=== PATIENT | female | born 1990 | race Caucasian/White ===

== ENCOUNTER → 2016-10-20 | Outpatient (CLI) | payer BC ==
[~2016-10-20] MED LIST: Iopamidol 612 MG/ML 30 ML SDV IUTERINE STA
--- NOTE | 2016-10-20 09:33 | US ---
EXAMINATION: Hysterosalpingogram. HISTORY: Infertility. PROCEDURE/FINDINGS: Written informed consent was obtained from the patient. Perineum was prepped wit h Betadine and after placement of vaginal speculum, the cervix was prepped with Betadine. A 5 Jordanian catheter was placed and after inflation of the balloon, 7 cc of contrast was injected until cornual regions are filled and multiple views of the pelvis are obtained. The uterine cavity is normal in configuration. No suspicious filling defects are seen. The right and left fallopian tubes are patent and spillage of contrast is noted into peritoneal cavi ty bilaterally. IMPRESSION: Patent fallopian tubes bilaterally.
== END | disposition home or self-care (01) ==
LOC: MW.DI 08:19
PROVIDERS: ATTEND Obstetrics & Gynecology
DX: Z31.49 Encounter for other procreative investigation and testing (principal)
CPT/HCPCS: 58340; 74740; Q9967

== ENCOUNTER 2017-01-20 21:52 | Emergency (ER) | payer BC ==
--- NOTE | 2017-01-20 21:59 | EDM.PDOC ---
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 Review of systems: As per history of present illness and below otherwise all systems reviewed and negative. Past medical history: As per history of present illness and as reviewed below otherwise noncontributory. Surgical history: As per history of present illness and as reviewed below otherwise noncontributory. Social history: No reported history of drug or alcohol abuse. Family history: As per history of present illness and as reviewed below otherwise noncontributory. Physical exam: HEENT: Atraumatic, normocephalic, pupils reactive, negative for conjunctival pallor or scleral icterus, mucous membranes moist, throat clear, neck supple, nontender, trachea midline. Lungs: Clear to auscultation, breath sounds equal bilaterally, chest nontender. Heart: S1S2, regular, negative for clicks, rubs, or JVD. Abdomen: Soft, nondistended, nontender. Negative for masses or hepatosplenomegaly. Negative for costovertebral tenderness. Pelvis: Stable nontender. Genitourinary: Deferred. Rectal: Deferred. Extremities: Atraumatic, negative for cords or calf pain. Neurovascular unremarkable. Neuro: Awake, alert, oriented. Cranial nerves II through XII unremarkable. Cerebellum unremarkable. Motor and sensory unremarkable throughout. Exam nonfocal. Diagnostics: CBC quantitative beta ABO Rh pelvic ultrasound Therapeutics: None Impression: #1 first trimester bleeding #2 threatened Definitive disposition and diagnosis as appropriate pending reevaluation and review of above. - Related Data Allergies Allergy/AdvReac Type Severity Reaction Status Date / Time amoxicillin [From Augmentin] Allergy Rash Verified 10/20/16 08:38 clavulanic acid Allergy Rash Verified 10/20/16 08:38 [From Augmentin] Penicillins Allergy Rash Verified 10/20/16 08:39 Home Meds: Home Meds . [No Known Home Meds] 01/20/17 [History] ED ROS GENERAL - Review of Systems Review Of Systems: ROS reveals no pertinent complaints other than HPI. ED EXAM, GENERAL - Physical Exam Exam: See Below (See dictation) Course - Vital Signs Last Recorded V/S: Last Vital Signs Temp 36.6 C 01/20/17 21:54 Pulse 112 H 01/20/17 23:01 Resp 16 01/20/17 23:01 BP 129/82 01/20/17 23:01 Pulse Ox 97 01/20/17 23:01 - Orders/Labs/Meds Orders: Active Orders 24 hr Category Date Time Status OB 1st Tri Ea Addl Gest [US] Stat Exams 01/20/17 21:57 Taken Labs: Laboratory Tests 01/20/17 01/20/17 01/20/17 Range/Units 22:07 22:07 22:07 WBC 8.96 (4.0-11.0) K/uL RBC 4.39 (4.30-5.90) M/uL Hgb 13.5 (12.0-16.0) g/dL Hct 39.3 (36.0-46.0) % MCV 89.5 (80.0-98.0) fL MCH 30.8 (27.0-32.0) pg MCHC 34.4 (31.0-37.0) g/dL RDW Std Deviation 40.2 (28.0-62.0) fl RDW Coeff of Osiel 12 (11.0-15.0) % Plt Count 261 (150-400) K/uL MPV 9.40 (7.40-12.00) fL Neut % (Auto) 57.9 (48.0-80.0) % Lymph % (Auto) 35.9 (16.0-40.0) % [place] % (Auto) 5.0 (0.0-15.0) % Eos % (Auto) 0.8 (0.0-7.0) % Baso % (Auto) 0.4 (0.0-1.5) % Neut # (Auto) 5.2 (1.4-5.7) K/uL Lymph # (Auto) 3.2 H (0.6-2.4) K/uL [place] # (Auto) 0.5 (0.0-0.8) K/uL Eos # (Auto) 0.1 (0.0-0.7) K/uL Baso # (Auto) 0.0 (0.0-0.1) K/uL Nucleated RBC % 0.0 /100WBC Nucleated RBCs # 0 K/uL HCG, Quant 38075.0 mIU/mL Blood Type A POSITIVE Meds: Medications Discontinued Medications Generic Name Dose Route Start Last Admin Trade Name Freq PRN Reason Stop Dose Admin Albuterol/Ipratropium Confirm 01/20/17 22:21 Duoneb 3.0-0.5 Mg/3 Ml Administered 01/20/17 22:22 Dose 3 ml .ROUTE .STK-MED ONE Departure - Departure Time of Disposition: 23:40 Disposition: Home, Self-Care 01 Condition: Good Clinical Impression: Threatened - Discharge Information Forms: ED Department Discharge Additional Instructions: The following information is given to patients seen in the emergency department who are being discharged to home. This information is to outline your options for follow-up care. We provide all patients seen in our emergency department with a follow-up referral. The need for follow-up, as well as the timing and circumstances, are variable depending upon the specifics of your emergency department visit. If you don't have a primary care physician on staff, we will provide you with a referral. We always advise you to contact your personal physician following an emergency department visit to inform them of the circumstance of the visit and for follow-up with them and/or the need for any referrals to a consulting specialist. The emergency department will also refer you to a specialist when appropriate. This referral assures that you have the opportunity for followup care with a specialist. All of these measure are taken in an effort to provide you with optimal care, which includes your followup. Under all circumstances we always encourage you to contact your private physician who remains a resource for coordinating your care. When calling for followup care, please make the office aware that this follow-up is from your recent emergency room visit. If for any reason you are refused follow-up, please contact the [facility] emergency department at and asked to speak to the emergency department charge nurse. Follow-up MED SPEC 24-48 hours vaginal rest as discussed return as needed as discussed - My Orders Last 24 Hours: My Active Orders 01/20/17 21:57 OB 1st Tri Ea Addl Gest [US] Stat - Assessment/Plan Last 24 Hours: My Active Orders 01/20/17 21:57 OB 1st Tri Ea Addl Gest [US] Stat
[2017-01-20] MEDS ORDERED: Albuterol/Ipratropium 3.0-0.5 MG/3 ML Neb Soln ONE (22:21)
[2017-01-21 00:26] VITALS: BP 126/74
--- NOTE | 2017-01-21 13:22 | US ---
EXAM DATE: 01/20/17 PATIENT'S AGE: 26 Patient: SEAN KENNY Facility: [place], [place] Site . Site : 1990 Study: US OB Pelvis [id number]/12/2017 10:39:11 PM Ordering Physician: Doctor Woodard Final Report: INDICATION: SPOTTING AND CRAMPING TECHNIQUE: Ultrasound limited OB. COMPARISON: None FINDINGS: There is a single intrauterine gestational sac present with a viable pole. The pole has a crown-rump length of 5 mm with estimated gestational age of 6 weeks, 3 days. A normal yolk sac is seen. heart rate of 118 bpm was measured. No perichorionic hemorrhage is noted. The placenta has not yet developed. There is a complex cyst noted in the right ovary measuring 2.5 cm. Arterial blood flow seen in both ovaries. The cervix is not seen. No ascites present. IMPRESSION: 1. Single viable pole with estimated gestational age of 6 weeks, 3 days seen. Dictated by: Dakota Dumont MD @ 01/20/2017 23:24:07 (Electronic Signature) Report Signed by Proxy. DAWIT
== END 2017-01-20 23:50 | disposition home or self-care (01) ==
LOC: MW.ED 21:52
DX: O20.0 Threatened abortion (principal); Z3A.01 Less than 8 weeks gestation of pregnancy; Z88.0 Allergy status to penicillin; Z88.1 Allergy status to other antibiotic agents; Z88.8 Allergy status to other drugs, medicaments and biological substances
CPT/HCPCS: 36415; 76801; 76802; 76802-26; 84702; 85025; 86900; 86901; 99282; 99284-25

== ENCOUNTER 2017-03-24 14:18 | Emergency (ER) | payer BC ==
--- NOTE | 2017-03-24 14:47 | EDM.PDOC ---
ED HPI GENERAL MEDICAL PROBLEM - General Chief Complaint: Abdominal Pain Stated Complaint: BACK PAIN Time Seen by Provider: 03/24/17 14:31 - History of Present Illness INITIAL COMMENTS - FREE TEXT/NARRATIVE: HISTORY AND PHYSICAL: History of present illness: The patient is a 27-year-old female who presents with complaints of pain at her right upper back area near the scapula and pain going down her right arm and into her neck that started sometime last evening. She says it feels very muscular and is worse with certain movements. She says she did not take anything for the pain because she is 15 weeks and is a one para 0. Her EDC is 09/11/17 and she follows with [facility]. Patient says that she has had intermittent episodes of right upper quadrant pain before she was over the last one year and when she started having this back pain she looked up on the Internet that her upper abdominal pain in the past could be connected to her right back pain and related to her gallbladder. He says that she was concerned and contacted her OB MDs office who referred her here if she could not wait until her appointment tomorrow. The patient denies any weakness or neurosensory changes in her right upper extremity and has no midline back pain. She has no flank pain per se and no urinary complaints. When she talks about the abdominal pain that she has had in the past is not related specifically to any foods and she never sought evaluation for it. The patient has no mid or lower abdominal pain and has had no vaginal bleeding or issues with this . She said she has had nausea and vomiting in the past and cramping and that has been stable overall. Patient denies any recent traumas. Review of systems: As per history of present illness and below otherwise all systems reviewed and negative. Past medical history: As per history of present illness and as reviewed below otherwise noncontributory. Surgical history: As per history of present illness and as reviewed below otherwise noncontributory. Social history: No reported history of drug or alcohol abuse. Family history: As per history of present illness and as reviewed below otherwise noncontributory. Physical exam: Gen.: Well-nourished well-developed female who is nontoxic and moves easily in the ED without any distress HEENT: Atraumatic, normocephalic, negative for conjunctival pallor or scleral icterus, mucous membranes moist, throat clear, neck supple, nontender, trachea midline. Lungs: Clear to auscultation, breath sounds equal bilaterally, chest nontender. Heart: S1S2, regular rate and rhythm no overt murmurs Abdomen: Soft, nondistended, nontender. I'm unable to reproduce any pain on palpation of the upper abdomen and she has no lower abdominal tenderness. Bowel sounds are normoactive and there is no guarding or rebound. Negative for masses or hepatosplenomegaly. Negative for costovertebral tenderness. Pelvis: Stable nontender. Genitourinary: Deferred. Rectal: Deferred. Extremities: Atraumatic, negative for cords or calf pain. Neurovascular unremarkable. Neuro: Awake, alert, oriented. Cranial nerves II through XII unremarkable. Cerebellum unremarkable. Motor and sensory unremarkable throughout. Exam nonfocal. Back: There are no midline step-offs tenderness defects of the thoracic or lumbar spine and no specific flank tenderness on palpation and no CVA tenderness. When I palpate the shoulder musculature I cannot reproduce the pain and the patient can range of motion the arm but says that there is some discomfort with that. Strength is intact in that upper extremity. There is no soft tissue swelling Diagnostics: CBC CMP amylase lipase UA heart tones--per nursing 155 Therapeutics: 1610: Case was discussed with Dr. Cho who says that the patient was seen yesterday and has appointment for tomorrow and they will follow-up with any further testing that needs to be performed at this point. I reassured the patient that all the tests that we performed are negative and any further chest will be done through Dr. Cho's office. Advise using heat and Tylenol which she has not tried and reasons to return to the ER. Impression: Stable skeletal right back/arm pain stable, second trimester stable Definitive disposition and diagnosis as appropriate pending reevaluation and review of above. Right Upper Abdominal Pain Score (Numeric/FACES): 5 - Related Data Allergies Allergy/AdvReac Type Severity Reaction Status Date / Time amoxicillin [From Augmentin] Allergy Rash Verified 03/24/17 14:36 clavulanic acid Allergy Rash Verified 03/24/17 14:36 [From Augmentin] Penicillins Allergy Rash Verified 03/24/17 14:36 Home Meds: Home Meds . [No Known Home Meds] 01/20/17 [History] Past Medical History HEENT History: Reports: None Cardiovascular History: Reports: None Respiratory History: Reports: None Gastrointestinal History: Reports: None Genitourinary History: Reports: None DATA SCIENCES DIRECTOR History: Reports: Musculoskeletal History: Reports: None Neurological History: Reports: None Psychiatric History: Reports: None Endocrine/Metabolic History: Reports: None Hematologic History: Reports: None Immunologic History: Reports: None Oncologic (Cancer) History: Reports: None Dermatologic History: Reports: None - Infectious Disease History Infectious Disease History: Reports: Chicken Pox - Past Surgical History Head Surgeries/Procedures: Reports: None HEENT Surgical History: Reports: Tonsillectomy Cardiovascular Surgical History: Reports: None Respiratory Surgical History: Reports: None GI Surgical History: Reports: None Female Surgical History: Reports: None Endocrine Surgical History: Reports: None Neurological Surgical History: Reports: None Musculoskeletal Surgical History: Reports: None Oncologic Surgical History: Reports: None Dermatological Surgical History: Reports: None Social & Family History - Family History Family Medical History: Noncontributory - Tobacco Use Smoking Status *Q: Never Smoker - Caffeine Use Caffeine Use: Reports: None - Recreational Drug Use Recreational Drug Use: No ED ROS GENERAL - Review of Systems Review Of Systems: ROS reveals no pertinent complaints other than HPI. ED EXAM, GENERAL - Physical Exam Exam: See Below (See dictation) Course - Vital Signs Last Recorded V/S: Last Vital Signs Temp 36.6 C 03/24/17 14:36 Pulse 94 03/24/17 14:36 Resp 18 03/24/17 14:36 BP 123/66 03/24/17 14:36 Pulse Ox 98 03/24/17 14:36 - Orders/Labs/Meds Orders: Active Orders 24 hr Category Date Time Status Communication Order [RC] STAT Care 03/24/17 14:40 Active Labs: Laboratory Tests 03/24/17 03/24/17 03/24/17 Range/Units 14:45 14:45 14:55 WBC 8.62 (4.0-11.0) K/uL RBC 3.99 L (4.30-5.90) M/uL Hgb 12.6 (12.0-16.0) g/dL Hct 36.0 (36.0-46.0) % MCV 90.2 (80.0-98.0) fL MCH 31.6 (27.0-32.0) pg MCHC 35.0 (31.0-37.0) g/dL RDW Std Deviation 42.0 (28.0-62.0) fl RDW Coeff of [place]iel 13 (11.0-15.0) % Plt Count 224 (150-400) K/uL MPV 9.20 (7.40-12.00) fL Neut % (Auto) 72.6 (48.0-80.0) % Lymph % (Auto) 20.2 (16.0-40.0) % [place] % (Auto) 6.4 (0.0-15.0) % Eos % (Auto) 0.6 (0.0-7.0) % Baso % (Auto) 0.2 (0.0-1.5) % Neut # (Auto) 6.3 H (1.4-5.7) K/uL Lymph # (Auto) 1.7 (0.6-2.4) K/uL [place] # (Auto) 0.6 (0.0-0.8) K/uL Eos # (Auto) 0.1 (0.0-0.7) K/uL Baso # (Auto) 0.0 (0.0-0.1) K/uL Nucleated RBC % 0.0 /100WBC Nucleated RBCs # 0 K/uL Sodium 137 (136-146) mmol/L Potassium 4.0 (3.5-5.1) mmol/L Chloride 107 (98-110) mmol/L Carbon Dioxide 23 (21-31) mmol/L BUN 8 (6.0-23.0) mg/dL Creatinine 0.6 (0.6-1.5) mg/dL Est Cr Clr Drug Dosing 116.50 mL/min Estimated GFR (MDRD) > 60.0 ml/min Glucose 84 (60-110) mg/dL Calcium 9.5 (8.8-10.8) mg/dL Total Bilirubin 0.3 (0.1-1.5) mg/dL AST 52 H (5-40) IU/L ALT 64 H (8-54) IU/L Alkaline Phosphatase 58 (40-150) Total Protein 6.7 (6.0-8.0) g/dL Albumin 3.7 (3.5-5.0) g/dL Globulin 3.0 (2.0-3.5) g/dL Albumin/Globulin Ratio 1.2 L (1.3-2.8) Amylase 37 (10-90) U/L Lipase 11 (7-80) U/L Urine Color YELLOW Urine Appearance CLEAR Urine pH 5.0 (5.0-8.0) Ur Specific [place] <= 1.005 (1.001-1.035) Urine Protein NEGATIVE (NEGATIVE) mg/dL Urine Glucose (UA) NEGATIVE (NEGATIVE) mg/dL Urine Ketones NEGATIVE (NEGATIVE) mg/dL Urine Occult Blood NEGATIVE (NEGATIVE) Urine Nitrite NEGATIVE (NEGATIVE) Urine Bilirubin NEGATIVE (NEGATIVE) Urine Urobilinogen 0.2 (<2.0) EU/dL Ur Leukocyte Esterase NEGATIVE (NEGATIVE) Urine RBC NONE SEEN (0-2/HPF) Urine WBC 0-1 (0-5/HPF) Urine Bacteria FEW (NEGATIVE) Urine Mucus LIGHT (NONE-MOD) Departure - Departure Time of Disposition: 16:13 Disposition: Home, Self-Care 01 Condition: Good Clinical Impression: Musculoskeletal pain, Second trimester - Discharge Information Referrals: PCP,None [Primary Care Provider] - Forms: ED Department Discharge Additional Instructions: The following information is given to patients seen in the emergency department who are being discharged to home. This information is to outline your options for follow-up care. We provide all patients seen in our emergency department with a follow-up referral. The need for follow-up, as well as the timing and circumstances, are variable depending upon the specifics of your emergency department visit. If you don't have a primary care physician on staff, we will provide you with a referral. We always advise you to contact your personal physician following an emergency department visit to inform them of the circumstance of the visit and for follow-up with them and/or the need for any referrals to a consulting specialist. The emergency department will also refer you to a specialist when appropriate. This referral assures that you have the opportunity for followup care with a specialist. All of these measure are taken in an effort to provide you with optimal care, which includes your followup. Under all circumstances we always encourage you to contact your private physician who remains a resource for coordinating your care. When calling for followup care, please make the office aware that this follow-up is from your recent emergency room visit. If for any reason you are refused follow-up, please contact the [facility] emergency department at and ask to speak to the emergency department charge nurse. [address] [id number] Please keep your appointment tomorrow in the clinic as you have scheduled and use heat to areas of discomfort and take [id number] Tylenol. Return to ER as needed and as discussed. - My Orders Last 24 Hours: My Active Orders 03/24/17 14:40 Communication Order [RC] STAT - Assessment/Plan Last 24 Hours: My Active Orders 03/24/17 14:40 Communication Order [RC] STAT
[2017-03-24 15:23] LABS: CHLORIDE,CL 107 mmol/L (98-110); SODIUM,NA 137 mmol/L (136-146)
[2017-03-24 16:28] VITALS: BP 108/68
== END 2017-03-24 16:23 | disposition home or self-care (01) ==
LOC: MW.ED 14:18
DX: O99.89 Other specified diseases and conditions complicating pregnancy, childbirth and the puerperium (principal); M79.1 Myalgia; Z98.890 Other specified postprocedural states; Z88.0 Allergy status to penicillin; Z88.1 Allergy status to other antibiotic agents; Z3A.15 15 weeks gestation of pregnancy
CPT/HCPCS: 36415; 80053; 81001; 82150; 83690; 85025; 99283

== ENCOUNTER 2017-09-03 20:27 | Inpatient (IN) | payer BC ==
[2017-09-03] MEDS ORDERED: Methylergonovine 0.2 MG/1 ML Amp IM PRN (21:43)
[2017-09-03] MEDS ORDERED: Water For Irrigation,Sterile 1,000 ML Container IRR PRN (21:43)
[2017-09-03] MEDS ORDERED: Butorphanol 1 MG/ML SDV IVPUSH PRN (21:43)
[2017-09-03] MEDS ORDERED: Sodium Chloride 0.9% 10 ML Syringe FLUSH PRN (21:43)
[2017-09-03] MEDS ORDERED: Sodium Chloride 0.9% 2.5 ML Syringe FLUSH PRN (21:43)
[2017-09-03] MEDS ORDERED: Misoprostol 200 MCG Tab PO PRN (21:43)
[2017-09-03] MEDS ORDERED: Carboprost Tromethamine 250 MCG/1 ML Amp IM PRN (21:43)
[2017-09-03] MEDS ORDERED: Nalbuphine 10 MG/1 ML Vial IVPUSH PRN (21:43)
[2017-09-03] MEDS ORDERED: Tranexamic Acid 1,000 MG in Sodium Chloride 0.9% 100 ML IV PRN (21:43)
[2017-09-03] MEDS ORDERED: Lidocaine 1% 50 ML MDV INJECT PRN (21:43)
[2017-09-03] MEDS ORDERED: Oxytocin/0.9 % Sodium Chloride 30 UNIT/500 ML BAG IV SCH (21:45)
[2017-09-03] MEDS: Lactated Ringers 1,000 ML IV SCH ×2 (22:16→23:28)
[2017-09-03] MEDS ORDERED: Ropivacaine 0.2% 2 MG/ML 20 ML SDV ONE (22:59)
--- NOTE | 2017-09-03 23:28 | PCM.PREANE ---
Preanesthetic Assessment - Anesthesia/Transfusion/Family Hx Anesthesia History: Prior Anesthesia Without Reaction Family History of Anesthesia Reaction: No - Review of Systems Other: Reports: None - Physical Assessment Height: 5 ft 3.5 in Weight: 130 kg ASA Class: 2 Mental Status: Alert & Oriented x3 Airway Class: Mallampati = 1 Dentition: Reports: Normal Dentition Thyro-Mental Finger Breadths: 3 Mouth Opening Finger Breadths: 3 ROM/Head Extension: Full - Lab Values: Laboratory Last Values WBC 14.00 K/uL (4.0-11.0) H 09/03/17 22:08 RBC 4.14 M/uL (4.30-5.90) L 09/03/17 22:08 Hgb 13.4 g/dL (12.0-16.0) 09/03/17 22:08 Hct 38.5 % (36.0-46.0) 09/03/17 22:08 MCV 93.0 fL (80.0-98.0) 09/03/17 22:08 MCH 32.4 pg (27.0-32.0) H 09/03/17 22:08 MCHC 34.8 g/dL (31.0-37.0) 09/03/17 22:08 RDW Std Deviation 44.9 fl (28.0-62.0) 09/03/17 22:08 RDW Coeff of Osiel 13 % (11.0-15.0) 09/03/17 22:08 Plt Count 159 K/uL (150-400) 09/03/17 22:08 MPV 10.80 fL (7.40-12.00) 09/03/17 22:08 Nucleated RBC % 0.0 /100WBC 09/03/17 22:08 Nucleated RBCs # 0 K/uL 09/03/17 22:08 Blood Type A POSITIVE 09/03/17 22:08 Antibody Screen NEGATIVE 09/03/17 22:08 - Allergies Allergies/Adverse Reactions: Allergies Allergy/AdvReac Type Severity Reaction Status Date / Time amoxicillin [From Augmentin] Allergy Rash Verified 03/24/17 14:36 clavulanic acid Allergy Rash Verified 03/24/17 14:36 [From Augmentin] Penicillins Allergy Rash Verified 03/24/17 14:36 - Blood Blood Available: Yes Product(s) Available: PRBC - Acknowledgements Anesthesia Type Planned: Epidural Pt an Appropriate Candidate for the Planned Anesthesia: Yes Alternatives and Risks of Anesthesia Discussed w Pt/Guardian: Yes Pt/Guardian Understands and Agrees with Anesthesia Plan: Yes PreAnesthesia Questionnaire HEENT History: Reports: None Cardiovascular History: Reports: None Respiratory History: Reports: None Gastrointestinal History: Reports: None Genitourinary History: Reports: None MRI TECH History: Reports: Musculoskeletal History: Reports: None Neurological History: Reports: None Psychiatric History: Reports: None Endocrine/Metabolic History: Reports: None Hematologic History: Reports: None Immunologic History: Reports: None Oncologic (Cancer) History: Reports: None Dermatologic History: Reports: None - Infectious Disease History Infectious Disease History: Reports: Chicken Pox - Past Surgical History Head Surgeries/Procedures: Reports: None HEENT Surgical History: Reports: Tonsillectomy Cardiovascular Surgical History: Reports: None Respiratory Surgical History: Reports: None GI Surgical History: Reports: None Female Surgical History: Reports: None Endocrine Surgical History: Reports: None Neurological Surgical History: Reports: None Musculoskeletal Surgical History: Reports: None Oncologic Surgical History: Reports: None Dermatological Surgical History: Reports: None - SUBSTANCE USE Smoking Status *Q: Never Smoker Recreational Drug Use History: No - HOME MEDS Home Medications: Home Meds . [No Known Home Meds] 01/20/17 [History] - CURRENT (IN HOUSE) MEDS Current Meds: Current Medications Butorphanol Tartrate (Stadol) 1 mg IVPUSH ASDIRECTED PRN PRN Reason: Pain Carboprost Tromethamine (Hemabate Ds) 250 mcg IM ASDIRECTED PRN PRN Reason: Post Hemorrhage Lactated Ringer's (Ringers, Lactated) 1,000 mls @ 150 mls/hr IV ASDIRECTED REPLACED BY [facility] Last Admin: 09/03/17 22:16 Dose: 150 mls/hr Oxytocin/Sodium Chloride (Oxytocin 30 Unit/500 Ml-Ns) 30 unit in 500 mls @ 999 mls/hr IV ASDIRECTED REPLACED BY [facility] Tranexamic Acid 1,000 mg/ (Sodium Chloride) 110 mls @ 600 mls/hr IV ONETIME PRN PRN Reason: Bleeding Vancomycin HCl 1 gm/ Sodium (Chloride) 250 mls @ 166 mls/hr IV Q12H REPLACED BY [facility] Last Admin: 09/03/17 23:04 Dose: 166 mls/hr Lidocaine HCl (Xylocaine 1%) 50 ml INJECT .ONCE PRN PRN Reason: Laceration repair Methylergonovine Maleate (Methergine) 0.2 mg IM ASDIRECTED PRN PRN Reason: Post Hemorrhage Misoprostol (Cytotec) 200 mcg PO .ONCE PRN PRN Reason: Post Hemorrhage Nalbuphine HCl (Nubain) 10 mg IVPUSH ASDIRECTED PRN PRN Reason: Pain (severe 7-10) Sodium Chloride (Saline Flush) 10 ml FLUSH ASDIRECTED PRN PRN Reason: Keep Vein Open Sodium Chloride (Saline Flush) 2.5 ml FLUSH ASDIRECTED PRN PRN Reason: Keep Vein Open Sterile Water (Sterile Water For Irrigation) 1,000 ml IRR ASDIRECTED PRN PRN Reason: delivery Discontinued Medications Vancomycin HCl 1 gm/ Sodium (Chloride) 250 mls @ 166 mls/hr IV Q12H [facility] Fentanyl/Bupivacaine HCl (Ezpxvdyy-Embef-Xh 2 Mcg/Ml-0.125%) Confirm Administered Dose 100 mls @ as directed EP .STK-MED ONE Stop: 09/03/17 23:00 Ropivacaine (Naropin 0.2%) Confirm Administered Dose 20 ml .ROUTE .STK-MED ONE Stop: 09/03/17 23:00
[2017-09-04] MEDS ORDERED: Benzocaine/Menthol 20%-0.5% Spray 78 GM Cannister TOP PRN (13:32)
[2017-09-04] MEDS ORDERED: Witch Hazel Medicated Pads 40/Jar TOP PRN (13:32)
[2017-09-04] MEDS ORDERED: Bisacodyl 10 MG Supp RECTAL PRN (13:32)
[2017-09-04] MEDS ORDERED: Ibuprofen 400 MG Tab PO PRN (13:32)
[2017-09-04] MEDS ORDERED: Docusate Sodium 100 MG Cap PO PRN (13:32)
[2017-09-04] MEDS ORDERED: oxyCODONE 5 MG Tab PO PRN (13:32)
[2017-09-04] MEDS ORDERED: Acetaminophen 500 MG Tab PO PRN (13:32)
[2017-09-04] MEDS ORDERED: Lanolin 100% Cream 7 GM Tube TOP PRN (13:32)
[2017-09-04] MEDS ORDERED: Aluminum Hydroxide/Magnesium Hydroxide/Simethicone Susp 30 ML Cup PO PRN (13:32)
[2017-09-04] MEDS: Acetaminophen 500 MG Tab PO PRN (14:34)
--- NOTE | 2017-09-04 18:34 | PCM48HPAN ---
Post Anesthesia Note - EVALUATION WITHIN 48HRS OF ANESTHETIC Vital Signs in Normal Range: Yes Patient Participated in Evaluation: Yes Respiratory Function Stable: Yes Airway Patent: Yes Cardiovascular Function Stable: Yes Hydration Status Stable: Yes Pain Control Satisfactory: Yes Nausea and Vomiting Control Satisfactory: Yes Mental Status Recovered: Yes Resp Rate: 16
--- NOTE | 2017-09-04 21:29 | OR ---
SURGEON: Claudia Cho M.D. DATE OF PROCEDURE: 09/04/2017 PREOPERATIVE DIAGNOSES: 1. A 39-week intrauterine . 2. Group B beta strep positive. POSTOPERATIVE DIAGNOSES: 1. A 39-week intrauterine . 2. Group B beta strep positive. PROCEDURE: Spontaneous vaginal delivery, second-degree midline laceration repaired ESTIMATED BLOOD LOSS: 300 mL. ANESTHESIA: Epidural. COMPLICATIONS: None. FINDINGS: Term female. score 9 at 1 minute, 10 at 5 minute. Weight of 3090 g. Spontaneous delivery. Intact placenta. Three-vessel cord, cord is noted to be quite short with meconium-stained amniotic fluid. DISPOSITION: nursery, mother in LDRP, stable. PROCEDURE IN DETAIL: Pretty Fischer is a 27-year-old, G1, P0, who presented on the evening of 09/03/2017 with contractions that were persistent and irregular throughout the day. On initial examination, she was found to be 5 cm, which was unchanged from previous examination that they found to be 3 cm. heart tones 140s with variability. Therefore, the patient was admitted. Routine labs were drawn. IV hydration was initiated. She is requesting an epidural. She underwent this satisfactorily. Became more comfortable in labor throughout the night hours. Shortly after 9 a.m. on the morning of 09/04/2017 she was found to be 9 cm, 100% effaced, -1 station and had spontaneous rupture of membranes. She was receiving vancomycin for group B beta strep positive status and antibiotic allergies. There was light meconium stained fluid noted with the spontaneous rupture of membranes. heart tones remained in the 140s with variability. The patient continued labor throughout the morning hours, became complete, 100% effaced, and had a +1 station and felt the urge to push. She began pushing efforts. She pushed effectively to a +3 station. I was called for delivery. Upon my arrival, the patient was placed in modified dorsal lithotomy position. She was prepped and draped in the usual aseptic manner. Continued with pushing efforts and was able to satisfactorily deliver infant's head to a +4 station, followed by delivery of the remainder of the head, anterior shoulder, posterior shoulder, remainder of body without difficulty. The 's oropharynx and nares were bulb suctioned. Cord was clamped x2 and cut. The nuchal cord was noted to be quite short. was handed off to her mother, attending nursing staff at her side. Cord arterial, cord venous, cord blood sampling was obtained. Light suprapubic pressure was applied while the placenta was delivered spontaneously intact. This will be sent to Pathology for further analysis. Vigorous fundal uterine massage was then applied while 30 units of Pitocin was delivered in 500 mL of IV fluid. Upon inspection of cervix, vaginal sidewalls, and perineum, there was found to be a second-degree midline laceration. This was repaired using 3-0 Vicryl in the usual fashion. Hemostasis appeared evident. Sponge count and needle count were correct. Uterus remained firm. Hemostasis was evident. The patient remained in LDRP. Infant in nursery. CHRIS / NAHID /[id number]
[2017-09-04] MEDS: Ibuprofen 800 MG Tab PO PRN (22:15)
[2017-09-05] MEDS: Ibuprofen 800 MG Tab PO PRN (06:08)
--- NOTE | 2017-09-05 09:46 | PCM.PNPP ---
- General Info Date of Service: 09/05/17 Subjective Update: Patient is tired this morning, but is going well overall. Pain is controlled. Ambulating, voiding, Lochiai is dissipating. She feels well overall and would like to go home later today. Tolerating regular diet. Functional Status: Reports: Pain Controlled, Tolerating Diet, Ambulating, Urinating - Review of Systems General: Denies: Fever, Weakness Pulmonary: Denies: Shortness of Breath Cardiovascular: Denies: Chest Pain, Palpitations, Lightheadedness Gastrointestinal: Reports: Flatus. Denies: Abdominal Pain, Nausea, Vomiting Genitourinary: Denies: Flank Pain Psychiatric: Reports: No Symptoms - General Info Date of Service: 09/05/17 - Patient Data Vital Signs - Most Recent: Last Vital Signs Temp 36.8 C 09/04/17 16:30 Pulse 107 H 09/04/17 22:07 Resp 16 09/04/17 22:07 BP 119/73 09/04/17 22:07 Pulse Ox 97 09/04/17 22:07 Weight - Most Recent: 130 kg Lab Results - Last 24 Hours: Laboratory Results - last 24 hr 09/05/17 Range/Units 06:00 Hgb 12.5 (12.0-16.0) g/dL Hct 37.0 (36.0-46.0) % Med Orders - Current: Current Medications Acetaminophen (Tylenol Extra Strength) 500 mg PO Q4H PRN PRN Reason: Pain Acetaminophen (Tylenol Extra Strength) 1,000 mg PO Q4H PRN PRN Reason: Pain Last Admin: 09/04/17 14:34 Dose: 1,000 mg Al Hydroxide/Mg Hydroxide (Mag-Al Plus) 30 ml PO Q8H PRN PRN Reason: Heartburn Benzocaine/Menthol (Dermoplast Pain Relief 20%-0.5% [place]) 78 gm TOP ASDIRECTED PRN PRN Reason: Perineal Comfort Measure Last Admin: 09/04/17 14:38 Dose: 78 gm Bisacodyl (Dulcolax) 10 mg RECTAL .ONCE PRN PRN Reason: Constipation Carboprost Tromethamine (Hemabate Ds) 250 mcg IM ASDIRECTED PRN PRN Reason: Post Hemorrhage Docusate Sodium (Colace) 100 mg PO BID PRN PRN Reason: Constipation Emollient Ointment (Lansinoh Hpa) 0 gm TOP ASDIRECTED PRN PRN Reason: Sore Nipples Lactated Ringer's (Ringers, Lactated) 1,000 mls @ 150 mls/hr IV ASDIRECTED [facility] Last Admin: 09/03/17 23:28 Dose: 150 mls/hr Oxytocin/Sodium Chloride (Oxytocin 30 Unit/500 Ml-Ns) 30 unit in 500 mls @ 999 mls/hr IV ASDIRECTED [facility] Last Infusion: 09/04/17 13:30 Dose: 250 mls/hr Tranexamic Acid 1,000 mg/ (Sodium Chloride) 110 mls @ 600 mls/hr IV ONETIME PRN PRN Reason: Bleeding Ibuprofen (Motrin) 400 mg PO Q4H PRN PRN Reason: Pain Ibuprofen (Motrin) 800 mg PO Q6H PRN PRN Reason: Pain Last Admin: 09/05/17 06:08 Dose: 800 mg Methylergonovine Maleate (Methergine) 0.2 mg IM ASDIRECTED PRN PRN Reason: Post Hemorrhage Misoprostol (Cytotec) 200 mcg PO .ONCE PRN PRN Reason: Post Hemorrhage Nalbuphine HCl (Nubain) 10 mg IVPUSH ASDIRECTED PRN PRN Reason: Pain (severe 7-10) Oxycodone HCl (Oxycodone) 5 mg PO Q2H PRN PRN Reason: Pain Last Admin: 09/04/17 22:14 Dose: 5 mg Sodium Chloride (Saline Flush) 10 ml FLUSH ASDIRECTED PRN PRN Reason: Keep Vein Open Sodium Chloride (Saline Flush) 2.5 ml FLUSH ASDIRECTED PRN PRN Reason: Keep Vein Open Witch Kristy (Tucks) 1 pad TOP ASDIRECTED PRN PRN Reason: comfort care Last Admin: 09/04/17 14:35 Dose: 1 pack Discontinued Medications Butorphanol Tartrate (Stadol) 1 mg IVPUSH ASDIRECTED PRN PRN Reason: Pain Vancomycin HCl 1 gm/ Sodium (Chloride) 250 mls @ 166 mls/hr IV Q12H [facility] Vancomycin HCl 1 gm/ Sodium (Chloride) 250 mls @ 166 mls/hr IV Q12H [facility] Last Admin: 09/04/17 11:09 Dose: 166 mls/hr Fentanyl/Bupivacaine HCl (Eapzcpjq-Xhgwv-Pl 2 Mcg/Ml-0.125%) Confirm Administered Dose 100 mls @ as directed EP .STK-MED ONE Stop: 09/03/17 23:00 Fentanyl/Bupivacaine HCl (Kxywtcyt-Wghaf-Tl 2 Mcg/Ml-0.125%) Confirm Administered Dose 100 mls @ as directed EP .STK-MED ONE Stop: 09/04/17 10:56 Last Admin: 09/05/17 08:10 Dose: Not Given Lidocaine HCl (Xylocaine 1%) 50 ml INJECT .ONCE PRN PRN Reason: Laceration repair Ropivacaine (Naropin 0.2%) Confirm Administered Dose 20 ml .ROUTE .STK-MED ONE Stop: 09/03/17 23:00 Sterile Water (Sterile Water For Irrigation) 1,000 ml IRR ASDIRECTED PRN PRN Reason: delivery Last Admin: 09/04/17 14:40 Dose: 1,000 ml - Interaction Infant Disposition, : [place] in Room with Family Interaction: Holding Infant Feeding: Breastfed Infant; Nursed Well Support Person: , Mother - Recovery Exam Fundal Tone: Firm Fundal Level: At Umbilicus Fundal Placement: Midline Lochia Amount: Small Perineum Description: Other (see below) Other Perinuem Description: 2 degree MLL Episiotomy/Laceration: Approximated Bladder Status: Voiding - Exam General: Alert, Oriented Lungs: Normal Respiratory Effort Cardiovascular: Regular Rate, Regular Rhythm GI/Abdominal Exam: Normal Bowel Sounds, Soft, Non-Tender Extremities: Pedal Edema (trace). No: Reese's Sign Skin: Warm, Dry, Intact Psy/Mental Status: Alert, Normal Affect - Problem List & Annotations (1) Vaginal delivery SNOMED Code(s): 394112361 Code(s): O80 - ENCOUNTER FOR FULL-TERM UNCOMPLICATED DELIVERY Status: Acute Current Visit: Yes - Problem List Review Problem List Initiated/Reviewed/Updated: Yes - My Orders Last 24 Hours: My Active Orders 09/04/17 13:32 Acetaminophen [Tylenol Extra Strength] 1,000 mg PO Q4H PRN Acetaminophen [Tylenol Extra Strength] 500 mg PO Q4H PRN Alum Hydrox/Mag Hydrox/Simeth [Mag-Al Plus] 30 ml PO Q8H PRN Benzocaine/Menthol [Dermoplast Pain Relief 20%-0.5% [place]] 78 gm TOP ASDIRECTED PRN Bisacodyl [Dulcolax] 10 mg RECTAL .ONCE PRN Docusate Sodium [Colace] 100 mg PO BID PRN Ibuprofen [Motrin] 400 mg PO Q4H PRN Ibuprofen [Motrin] 800 mg PO Q6H PRN Lanolin [Lansinoh HPA] See Dose Instructions TOP ASDIRECTED PRN Witch Kristy [Tucks] 1 pad TOP ASDIRECTED PRN oxyCODONE 5 mg PO Q2H PRN 09/04/17 13:33 Patient Status [ADT] Routine May Shower [RC] ASDIRECTED Up ad Megan [RC] ASDIRECTED Vital Signs [RC] PER UNIT ROUTINE Assess Lochia [WOMSER] Per Unit Routine Assess Uterine Involution [WOMSER] Per Unit Routine Ice Therapy [OM.PC] Per Unit Routine Perineal Care [OM.PC] Per Unit Routine Peripheral IV Discontinue [OM.PC] Routine Sitz Bath [OM.PC] Per Unit Routine 09/04/17 Lunch Regular Diet [DIET] 09/05/17 09:42 Ready for Discharge [RC] PER UNIT ROUTINE - Assessment Assessment:: PPD 1 status post /2nd MLL repaired - Plan Plan:: Doing well overall, VS are stable and lab reassuring. Discharge to home later today. Infection and bleeding warnings reviewed. Follow up at [facility] 6 weeks. Discharge instructions reviewed.
[2017-09-05] MEDS: Acetaminophen 500 MG Tab PO PRN (10:48)
[2017-09-05 13:17] VITALS: BP 113/73
== END 2017-09-05 16:20 | disposition home or self-care (01) | DRG 560 ==
LOC: MW.OBCHECK 20:27 → MW.OB 20:28 → MW.OBCHECK 21:43 → MW.OB 21:43 → OBSVTOIN 09-04 13:13 → MW.OB 09-04 17:10
PROVIDERS: ADMIT Obstetrics & Gynecology; ATTEND Obstetrics & Gynecology
PROC: 10E0XZZ Delivery of Products of Conception, External Approach (ICD-10-PCS; principal; 2017-09-04)
PROC: 0KQM0ZZ Repair Perineum Muscle, Open Approach (ICD-10-PCS; 2017-09-04)
DX: O70.1 Second degree perineal laceration during delivery (principal); O77.0 Labor and delivery complicated by meconium in amniotic fluid; O99.824 Streptococcus B carrier state complicating childbirth; Z3A.39 39 weeks gestation of pregnancy; Z37.0 Single live birth
CPT/HCPCS: 01967; 36415; 51702; 59025; 59409; 85014; 85018; 85027; 86850; 86900; 86901; 88307; A9270-GY; J2590; J3370; J7050; J7120

== ENCOUNTER 2018-04-17 11:49 | Emergency (ER) | payer BC ==
--- NOTE | 2018-04-17 12:18 | EDM.PDOC ---
ED HPI GENERAL MEDICAL PROBLEM - General Chief Complaint: Fever Stated Complaint: FEVER Time Seen by Provider: 04/17/18 11:55 Source of Information: Reports: Patient History Limitations: Reports: No Limitations - History of Present Illness INITIAL COMMENTS - FREE TEXT/NARRATIVE: History of present illness: []Patient has had 2 days of fevers to 103. Patient complains of body aches, chest tightness and a mild dry cough. Patient denies sore throat, ear pain, abdominal pain or urinary problems. Review of systems: As per history of present illness and below otherwise all systems reviewed and negative. Past medical history: As per history of present illness and as reviewed below otherwise noncontributory. Surgical history: As per history of present illness and as reviewed below otherwise noncontributory. Social history: No reported history of drug or alcohol abuse. Family history: As per history of present illness and as reviewed below otherwise noncontributory. Physical exam: General: Well developed, well nourished in NAD HEENT: Atraumatic, normocephalic, pupils reactive, negative for conjunctival pallor or scleral icterus, mucous membranes moist, throat clear, neck supple, nontender, trachea midline. Lungs: Clear to auscultation, breath sounds equal bilaterally, chest nontender. Heart: S1S2, regular, negative for clicks, rubs, or JVD. Abdomen: Soft, nondistended, nontender. Negative for masses or hepatosplenomegaly. Negative for costovertebral tenderness. Pelvis: Stable nontender. Genitourinary: Deferred. Rectal: Deferred. Extremities: Atraumatic, negative for cords or calf pain. Neurovascular unremarkable. Neuro: Awake, alert, oriented. Cranial nerves II through XII unremarkable. Cerebellum unremarkable. Motor and sensory unremarkable throughout. Exam nonfocal. Skin:warm and dry Diagnostics: CBC, chemistry, blood cultures, chest x-ray, UA, test negative Therapeutics: None ED Course: Unremarkable Impression: Acute fevers Prescriptions: None Plan: Follow-up with primary care after 48 hours for blood culture results or return to ER if symptoms worsen. Definitive disposition and diagnosis as appropriate pending reevaluation and review of above. 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: Musculoskeletal History: Reports: None Neurological History: Reports: None Psychiatric History: Reports: None Endocrine/Metabolic History: Reports: None Hematologic History: Reports: None Immunologic History: Reports: None Oncologic (Cancer) History: Reports: None Dermatologic History: Reports: None - Infectious Disease History Infectious Disease History: Reports: Chicken Pox - Past Surgical History Head Surgeries/Procedures: Reports: None HEENT Surgical History: Reports: Tonsillectomy Cardiovascular Surgical History: Reports: None Respiratory Surgical History: Reports: None GI Surgical History: Reports: None Female Surgical History: Reports: None Endocrine Surgical History: Reports: None Neurological Surgical History: Reports: None Musculoskeletal Surgical History: Reports: None Oncologic Surgical History: Reports: None Dermatological Surgical History: Reports: None Social & Family History - Family History Family Medical History: Noncontributory - Tobacco Use Smoking Status *Q: Never Smoker - Caffeine Use Caffeine Use: Reports: Coffee - Recreational Drug Use Recreational Drug Use: No ED ROS GENERAL - Review of Systems Review Of Systems: ROS reveals no pertinent complaints other than HPI. ED EXAM, GENERAL - Physical Exam Exam: See Below (History of present illness) Course - Vital Signs Last Recorded V/S: Last Vital Signs Temp 98.4 F 04/17/18 13:05 Pulse 98 04/17/18 13:05 Resp 18 04/17/18 12:00 BP 129/77 04/17/18 12:00 Pulse Ox 98 04/17/18 13:05 - Orders/Labs/Meds Orders: Active Orders 24 hr Category Date Time Status Chest 2V [CR] Stat Exams 04/17/18 12:15 Taken CULTURE BLOOD [BC] Stat Lab 04/17/18 12:25 Received CULTURE BLOOD [BC] Stat Lab 04/17/18 12:35 Received CULTURE URINE [RM] Stat Lab 04/17/18 12:15 Received Blood Culture x2 Reflex Set [OM.PC] Stat Ot 04/17/18 12:14 Ordered Labs: Laboratory Tests 04/17/18 04/17/18 04/17/18 Range/Units 12:15 12:25 12:25 WBC 6.40 (4.0-11.0) K/uL RBC 4.85 (4.30-5.90) M/uL Hgb 15.1 (12.0-16.0) g/dL Hct 44.4 (36.0-46.0) % MCV 91.5 (80.0-98.0) fL MCH 31.1 (27.0-32.0) pg MCHC 34.0 (31.0-37.0) g/dL RDW Std Deviation 41.6 (28.0-62.0) fl RDW Coeff of Osiel 12 (11.0-15.0) % Plt Count 190 (150-400) K/uL MPV 9.90 (7.40-12.00) fL Neut % (Auto) 68.3 (48.0-80.0) % Lymph % (Auto) 24.2 (16.0-40.0) % [place] % (Auto) 5.9 (0.0-15.0) % Eos % (Auto) 0.8 (0.0-7.0) % Baso % (Auto) 0.8 (0.0-1.5) % Neut # (Auto) 4.4 (1.4-5.7) K/uL Lymph # (Auto) 1.6 (0.6-2.4) K/uL [place] # (Auto) 0.4 (0.0-0.8) K/uL Eos # (Auto) 0.1 (0.0-0.7) K/uL Baso # (Auto) 0.1 (0.0-0.1) K/uL Nucleated RBC % 0.0 /100WBC Nucleated RBCs # 0 K/uL Sodium 139 (136-145) mmol/L Potassium 4.4 (3.5-5.1) mmol/L Chloride 102 (98-107) mmol/L Carbon Dioxide 29.1 (21.0-32.0) mmol/L BUN 4 L (7.0-18.0) mg/dL Creatinine 0.7 (0.6-1.0) mg/dL Est Cr Clr Drug Dosing 98.53 mL/min Estimated GFR (MDRD) > 60.0 ml/min Glucose 107 H (74-106) mg/dL Calcium 9.1 (8.5-10.1) mg/dL Total Bilirubin 0.3 (0.2-1.0) mg/dL AST 19 (15-37) IU/L ALT 23 (14-63) IU/L Alkaline Phosphatase 81 (46-116) U/L Total Protein 7.8 (6.4-8.2) g/dL Albumin 3.9 (3.4-5.0) g/dL Globulin 3.9 H (2.0-3.5) g/dL Albumin/Globulin Ratio 1.0 L (1.3-2.8) Urine Color YELLOW Urine Appearance SLT CLOUDY Urine pH 6.0 (5.0-8.0) Ur Specific [place] 1.010 (1.001-1.035) Urine Protein NEGATIVE (NEGATIVE) mg/dL Urine Glucose (UA) NEGATIVE (NEGATIVE) mg/dL Urine Ketones NEGATIVE (NEGATIVE) mg/dL Urine Occult Blood NEGATIVE (NEGATIVE) Urine Nitrite NEGATIVE (NEGATIVE) Urine Bilirubin NEGATIVE (NEGATIVE) Urine Urobilinogen 0.2 (<2.0) EU/dL Ur Leukocyte Esterase NEGATIVE (NEGATIVE) Urine RBC 0-1 (0-2/HPF) Urine WBC 0-1 (0-5/HPF) Ur Epithelial Cells MODERATE (NONE-FEW) Urine Bacteria RARE (NEGATIVE) Departure - Departure Time of Disposition: 13:15 Disposition: Home, Self-Care 01 Condition: Good Clinical Impression: Acute febrile illness - Discharge Information *PRESCRIPTION DRUG MONITORING PROGRAM REVIEWED*: No *COPY OF PRESCRIPTION DRUG MONITORING REPORT IN PATIENT ALLISON: No Referrals: Kashif Clayton MD [Primary Care Provider] - Forms: ED Department Discharge Additional Instructions: The following information is given to patients seen in the emergency department who are being discharged to home. This information is to outline your options for follow-up care. We provide all patients seen in our emergency department with a follow-up referral. The need for follow-up, as well as the timing and circumstances, are variable depending upon the specifics of your emergency department visit. If you don't have a primary care physician on staff, we will provide you with a referral. We always advise you to contact your personal physician following an emergency department visit to inform them of the circumstance of the visit and for follow-up with them and/or the need for any referrals to a consulting specialist. The emergency department will also refer you to a specialist when appropriate. This referral assures that you have the opportunity for follow-up care with a specialist. All of these measure are taken in an effort to provide you with optimal care, which includes your follow-up. Under all circumstances we always encourage you to contact your private physician who remains a resource for coordinating your care. When calling for follow-up care, please make the office aware that this follow-up is from your recent emergency room visit. If for any reason you are refused follow-up, please contact the [facility] Emergency Department at and asked to speak to the emergency department charge nurse. [facility] Primary Care [address] [place] [id number] - My Orders Last 24 Hours: My Active Orders 04/17/18 12:14 Blood Culture x2 Reflex Set [OM.PC] Stat 04/17/18 12:15 Chest 2V [CR] Stat CULTURE URINE [RM] Stat 04/17/18 12:25 CULTURE BLOOD [BC] Stat 04/17/18 12:35 CULTURE BLOOD [BC] Stat - Assessment/Plan Last 24 Hours: My Active Orders 04/17/18 12:14 Blood Culture x2 Reflex Set [OM.PC] Stat 04/17/18 12:15 Chest 2V [CR] Stat CULTURE URINE [RM] Stat 04/17/18 12:25 CULTURE BLOOD [BC] Stat 04/17/18 12:35 CULTURE BLOOD [BC] Stat
[2018-04-17 13:02] LABS: CHLORIDE,CL 102 mmol/L (98-107); SODIUM,NA 139 mmol/L (136-145)
[2018-04-17 13:31] VITALS: BP 110/77
--- NOTE | 2018-04-18 15:40 | CR ---
EXAM DATE: 04/17/18 PATIENT'S AGE: 28 Patient: SEAN KENNY Facility: [place], [place] Site . Site : 1990 Study: XRay Chest [id number]/7/2018 12:45:51 PM Ordering Physician: Migel Nice Final Report: INDICATION: Pain, shortness of breath, fever TECHNIQUE: Chest radiograph 2 views COMPARISON: None FINDINGS: Mediastinum: The mediastinum is normal in appearance. The heart silhouette is normal in size and morphology. Lung: Both lungs are unremarkable in appearance. No sign of pleural effusion seen. No pneumothorax is identified. Musculoskeletal: Unremarkable for age. IMPRESSION: 1. No acute cardiopulmonary disease is seen. Dictated by: Dakota Dumont MD @ 04/17/2018 12:47:26 (Electronic Signature) Report Signed by Proxy. [facility]
== END 2018-04-17 13:25 | disposition home or self-care (01) ==
LOC: MW.ED 11:49
DX: R50.9 Fever, unspecified (principal); Z79.899 Other long term (current) drug therapy; Z88.0 Allergy status to penicillin; Z88.1 Allergy status to other antibiotic agents
CPT/HCPCS: 36415; 71046; 71046-26; 80053; 81001; 85025; 87040; 87086; 87804; 99283

== ENCOUNTER 2019-08-13 17:05 | Inpatient (IN) | payer BC ==
[2019-08-13] MEDS ORDERED: Sodium Chloride 0.9% 10 ML Syringe FLUSH PRN (17:40)
[2019-08-13] MEDS ORDERED: Misoprostol 200 MCG Tab PO PRN (17:40)
[2019-08-13] MEDS ORDERED: Water For Irrigation,Sterile 1,000 ML Container IRR PRN (17:40)
[2019-08-13] MEDS ORDERED: Carboprost Tromethamine 250 MCG/1 ML Amp IM PRN (17:40)
[2019-08-13] MEDS ORDERED: Lidocaine 1% 50 ML MDV INJECT PRN (17:40)
[2019-08-13] MEDS ORDERED: Tranexamic Acid 1,000 MG in Sodium Chloride 0.9% 100 ML IV PRN (17:40)
[2019-08-13] MEDS ORDERED: Butorphanol 1 MG/ML SDV IVPUSH PRN (17:40)
[2019-08-13] MEDS ORDERED: Sodium Chloride 0.9% 2.5 ML Syringe FLUSH PRN (17:40)
[2019-08-13] MEDS ORDERED: Terbutaline 1 MG/ML SDV SUBCUT PRN (17:40)
[2019-08-13] MEDS ORDERED: Methylergonovine 0.2 MG/1 ML Amp IM PRN (17:40)
[2019-08-13] MEDS ORDERED: Sodium Chloride 0.9% 10 ML SDV IV PRN (17:40)
[2019-08-13] MEDS ORDERED: Lactated Ringers 1,000 ML IV SCH (17:45)
[2019-08-13] MEDS ORDERED: Oxytocin/0.9 % Sodium Chloride 30 UNIT/500 ML BAG IV SCH ×2 (17:45)
[2019-08-13] MEDS ORDERED: Misoprostol 25 MCG (1/4 of 100 MCG) Tab VAG PRN (18:00)
[2019-08-14] MEDS ORDERED: Misoprostol 25 MCG (1/4 of 100 MCG) Tab VAG PRN (00:30)
[2019-08-14] MEDS ORDERED: Nalbuphine 10 MG/1 ML Vial IVPUSH PRN (06:27)
--- NOTE | 2019-08-14 08:34 | PCM.DEL ---
L & D Note - General Info Date of Service: 08/14/19 Mother's Due Date: 08/18/19 - Delivery Note Labor: Induced by Oxytocin Cervical Ripening Method: Misoprostil Delivery Outcome: Livebirth Infant Delivery Method: Spontaneous Vaginal Delivery-Single (baby delivered as MD walked in room. ) Nuchal Cord: None Anesthesia Type: Local Local Anesthetic Volume: 5cc Amniotic Fluid Description: Clear Laceration: None, 2nd Degree Suture type: Vicryl Suture size: 3-0 Placenta: Intact, Spontaneous Cord: 3 Vessels (velementous insertion) Estimated Blood Loss: 200 Resuscitation Needed: No : Suctioned Score 1 min: 8 Score 5 min: 9 Delivery Comments (Free Text/Narrative):: Liveborn female 8/9 weight 3290 grams. - General Info Date of Service: 08/14/19 - Patient Data Weight - Most Recent: 70.307 kg Lab Results Last 24 Hours: Laboratory Results - last 24 hr 08/13/19 08/13/19 Range/Units 18:09 18:09 WBC 8.85 (4.0-11.0) K/uL RBC 4.28 L (4.30-5.90) M/uL Hgb 13.2 (12.0-16.0) g/dL Hct 38.4 (36.0-46.0) % MCV 89.7 (80.0-98.0) fL MCH 30.8 (27.0-32.0) pg MCHC 34.4 (31.0-37.0) g/dL RDW Std Deviation 47.3 (28.0-62.0) fl RDW Coeff of Osiel 15 (11.0-15.0) % Plt Count 170 (150-400) K/uL MPV 11.00 (7.40-12.00) fL Nucleated RBC % 0.0 /100WBC Nucleated RBCs # 0 K/uL Blood Type A POSITIVE Antibody Screen NEGATIVE Med Orders - Current: Current Medications Carboprost Tromethamine (Hemabate Ds) 250 mcg IM ASDIRECTED PRN PRN Reason: Post Hemorrhage Lactated Ringer's (Ringers, Lactated) 1,000 mls @ 150 mls/hr IV ASDIRECTED [facility] Last Admin: 08/13/19 18:18 Dose: 150 mls/hr Oxytocin/Sodium Chloride (Oxytocin 30 Unit/500 Ml-Ns) 30 unit in 500 mls @ 500 mls/hr IV TITRATE [facility] Oxytocin/Sodium Chloride (Oxytocin 30 Unit/500 Ml-Ns) 30 unit in 500 mls @ 2 mls/hr IV TITRATE [facility]; Protocol Tranexamic Acid 1,000 mg/ (Sodium Chloride) 110 mls @ 660 mls/hr IV ONETIME PRN PRN Reason: Bleeding Lidocaine HCl (Xylocaine 1%) 50 ml INJECT ONETIME PRN PRN Reason: Laceration repair Methylergonovine Maleate (Methergine) 0.2 mg IM ASDIRECTED PRN PRN Reason: Post Hemorrhage Misoprostol (Cytotec) 200 mcg PO ONETIME PRN PRN Reason: Post Hemorrhage Misoprostol (Cytotec) 25 mcg VAG Q6H PRN PRN Reason: Cervical Ripening Last Admin: 08/14/19 00:47 Dose: 25 mcg Nalbuphine HCl (Nubain) 10 mg IVPUSH Q1H PRN PRN Reason: Pain Last Admin: 08/14/19 06:42 Dose: 10 mg Sodium Chloride (Saline Flush) 10 ml FLUSH ASDIRECTED PRN PRN Reason: Keep Vein Open Sodium Chloride (Saline Flush) 2.5 ml FLUSH ASDIRECTED PRN PRN Reason: Keep Vein Open Sodium Chloride (Normal Saline) 10 ml IV ASDIRECTED PRN PRN Reason: IV Use Sterile Water (Sterile Water For Irrigation) 1,000 ml IRR ASDIRECTED PRN PRN Reason: delivery Terbutaline Sulfate (Brethine) 0.25 mg SUBCUT ASDIRECTED PRN PRN Reason: Tacysystole Discontinued Medications Butorphanol Tartrate (Stadol) 1 mg IVPUSH Q1H PRN PRN Reason: Pain Last Admin: 08/14/19 04:00 Dose: 1 mg Misoprostol (Cytotec) 25 mcg VAG Q4H PRN PRN Reason: Cervical Ripening Last Admin: 08/13/19 18:30 Dose: 25 mcg - Problem List & Annotations (1) Vaginal delivery SNOMED Code(s): 800471735 Code(s): O80 - ENCOUNTER FOR FULL-TERM UNCOMPLICATED DELIVERY Status: Acute Current Visit: No - Problem List Review Problem List Initiated/Reviewed/Updated: Yes - My Orders Last 24 Hours: My Active Orders 08/14/19 00:30 miSOPROStoL [Cytotec] 25 mcg VAG Q6H PRN 08/14/19 06:27 Nalbuphine [Nubain] 10 mg IVPUSH Q1H PRN
[2019-08-14] MEDS ORDERED: oxyCODONE 5 MG Tab PO PRN (08:37)
[2019-08-14] MEDS ORDERED: Ibuprofen 400 MG Tab PO PRN (08:37)
[2019-08-14] MEDS ORDERED: Witch Hazel Medicated Pads 40/Jar TOP PRN (08:37)
[2019-08-14] MEDS ORDERED: Benzocaine/Menthol 20%-0.5% Spray 78 GM Cannister TOP PRN (08:37)
[2019-08-14] MEDS ORDERED: Bisacodyl 10 MG Supp RECTAL PRN (08:37)
[2019-08-14] MEDS ORDERED: Lanolin 100% Cream 7 GM Tube TOP PRN (08:37)
[2019-08-14] MEDS ORDERED: Acetaminophen 500 MG Tab PO PRN ×2 (08:37)
[2019-08-14] MEDS ORDERED: Methylergonovine 0.2 MG/1 ML Amp IM PRN (08:37)
[2019-08-14] MEDS ORDERED: Witch Hazel Medicated Pads 40/Jar TOP ONE (09:05)
[2019-08-14] MEDS: Ibuprofen 800 MG Tab PO PRN ×3 (09:17→21:00)
--- NOTE | 2019-08-14 11:36 | OR ---
SURGEON: Karen Duran M.D. DATE OF PROCEDURE: 08/14/2019 PREOPERATIVE DIAGNOSES: 39 2/7 weeks' intrauterine , polyhydramnios. POSTOPERATIVE DIAGNOSES: 39 2/7 weeks' intrauterine , polyhydramnios. PROCEDURES: Cytotec, Pitocin induction of labor; term spontaneous vaginal delivery; repair of second-degree laceration. PRIMARY SURGEON: Karen Duran MD. ANESTHESIA: Local. ESTIMATED BLOOD LOSS: Less than 200 mL. FINDINGS: Liveborn female, scores 8 and 9, weighing 3290 g. Placenta spontaneous, Schultze intact with 3 vessels. Velamentous cord insertion was noted. Three- vessel cord was noted. COMPLICATIONS: None known. DISPOSITION: Stable to Recovery. BRIEF HISTORY: This is a 29-year-old female. She is G2, P 1-0-0-1. She presents at 39 2/7 weeks' gestation for induction of labor with polyhydramnios. She received 2 doses of Cytotec. By 7 a.m., she was 2 cm dilated and had category 1 heart tones and requesting epidural. I was on my way to the hospital to evaluate her for her epidural, and as I was on the way to the hospital, I was called at 7:42 a.m. for delivery. I arrived on the floor at 7:48 a.m. and the delivery time was 7:48 a.m. with the baby having delivered immediately prior to my arrival. The infant was on the maternal abdomen. DESCRIPTION OF PROCEDURE: The was placed on the mother's abdomen, was warmed and dried. The infant was a liveborn female, scores 8 and 9, weighing 3290 g. After the cord had ceased to pulsate, it was doubly clamped and cut, and cord blood was collected for cord ABGs as well as routine cord blood sampling. Pitocin was initiated after delivery of the infant to assist with delivery of the placenta, which was delivered spontaneously, Schultze intact with 3 vessels. Velamentous cord insertion was noted. The mother was curious about observing the placenta and it was displayed to her. Upon inspection of the pelvis and perineum, there was a second-degree perineal laceration. There were no periurethral, vaginal sidewall, cervical, or rectal lacerations. 10 mL of 1% lidocaine was injected into the perineum. 3-0 Vicryl was utilized with a running lock suture of the vaginal mucosa for repair of the second-degree laceration followed by deep running suture of the 3-0 Vicryl for the perineal tissue and a subcuticular suture of the same stitch for the skin. Final sponge, needle, and instrument counts were correct. There were no known complications. Mother and baby are in LDR in good condition. NORMAN / NAHID /[id number]
[2019-08-14] MEDS: Docusate Sodium 100 MG Cap PO PRN (13:00)
[2019-08-15] MEDS: Ibuprofen 800 MG Tab PO PRN (06:46)
[2019-08-15] MEDS: Docusate Sodium 100 MG Cap PO PRN (06:47)
--- NOTE | 2019-08-15 09:14 | PCM.PNPP ---
- General Info Date of Service: 08/15/19 Functional Status: Reports: Pain Controlled, Tolerating Diet, Ambulating, Urinating - Review of Systems General: Reports: Fatigue. Denies: Fever, Weakness Pulmonary: Denies: Shortness of Breath Cardiovascular: Denies: Chest Pain, Palpitations, Lightheadedness Gastrointestinal: Reports: Abdominal Pain. Denies: Nausea, Vomiting Genitourinary: Denies: Flank Pain Musculoskeletal: Reports: No Symptoms Skin: Reports: No Symptoms Neurological: Reports: No Symptoms Psychiatric: Reports: No Symptoms - General Info Date of Service: 08/15/19 - Patient Data Vital Signs - Most Recent: Last Vital Signs Temp 37.0 C 08/14/19 20:00 Pulse 81 08/15/19 06:00 Resp 16 08/15/19 06:00 BP 125/80 08/15/19 06:00 Pulse Ox 98 08/15/19 06:00 Weight - Most Recent: 70.307 kg Lab Results - Last 24 Hours: Laboratory Results - last 24 hr 08/15/19 Range/Units 05:35 Hgb 11.2 L (12.0-16.0) g/dL Hct 33.0 L (36.0-46.0) % Med Orders - Current: Current Medications Acetaminophen (Tylenol Extra Strength) 500 mg PO Q4H PRN PRN Reason: Pain Acetaminophen (Tylenol Extra Strength) 1,000 mg PO Q4H PRN PRN Reason: Pain Benzocaine/Menthol (Dermoplast Pain Relief 20%-0.5% [place]) 78 gm TOP ASDIRECTED PRN PRN Reason: Perineal Comfort Measure Bisacodyl (Dulcolax) 10 mg RECTAL ONETIME PRN PRN Reason: Constipation Docusate Sodium (Colace) 100 mg PO BID PRN PRN Reason: Constipation Last Admin: 08/15/19 06:47 Dose: 100 mg Emollient Ointment (Lansinoh Hpa) 0 gm TOP ASDIRECTED PRN PRN Reason: Sore Nipples Last Admin: 08/14/19 09:18 Dose: 1 applic Ibuprofen (Motrin) 400 mg PO Q4H PRN PRN Reason: Pain Ibuprofen (Motrin) 800 mg PO Q6H PRN PRN Reason: Pain Last Admin: 08/15/19 06:46 Dose: 800 mg Methylergonovine Maleate (Methergine) 0.2 mg IM ONETIME PRN PRN Reason: Excessive Vaginal Bleeding Oxycodone HCl (Oxycodone) 5 mg PO Q2H PRN PRN Reason: Pain Witch Kristy (Tucks) 1 pad TOP ASDIRECTED PRN PRN Reason: comfort care Last Admin: 08/14/19 20:00 Dose: 1 pad Discontinued Medications Butorphanol Tartrate (Stadol) 1 mg IVPUSH Q1H PRN PRN Reason: Pain Last Admin: 08/14/19 04:00 Dose: 1 mg Carboprost Tromethamine (Hemabate Ds) 250 mcg IM ASDIRECTED PRN PRN Reason: Post Hemorrhage Lactated Ringer's (Ringers, Lactated) 1,000 mls @ 150 mls/hr IV ASDIRECTED SIERRA Last Admin: 08/13/19 18:18 Dose: 150 mls/hr Oxytocin/Sodium Chloride (Oxytocin 30 Unit/500 Ml-Ns) 30 unit in 500 mls @ 500 mls/hr IV TITRATE SIERRA Oxytocin/Sodium Chloride (Oxytocin 30 Unit/500 Ml-Ns) 30 unit in 500 mls @ 2 mls/hr IV TITRATE SIERRA; Protocol Tranexamic Acid 1,000 mg/ (Sodium Chloride) 110 mls @ 660 mls/hr IV ONETIME PRN PRN Reason: Bleeding Lidocaine HCl (Xylocaine 1%) 50 ml INJECT ONETIME PRN PRN Reason: Laceration repair Methylergonovine Maleate (Methergine) 0.2 mg IM ASDIRECTED PRN PRN Reason: Post Hemorrhage Misoprostol (Cytotec) 200 mcg PO ONETIME PRN PRN Reason: Post Hemorrhage Misoprostol (Cytotec) 25 mcg VAG Q4H PRN PRN Reason: Cervical Ripening Last Admin: 08/13/19 18:30 Dose: 25 mcg Misoprostol (Cytotec) 25 mcg VAG Q6H PRN PRN Reason: Cervical Ripening Last Admin: 08/14/19 00:47 Dose: 25 mcg Nalbuphine HCl (Nubain) 10 mg IVPUSH Q1H PRN PRN Reason: Pain Last Admin: 08/14/19 06:42 Dose: 10 mg Sodium Chloride (Saline Flush) 10 ml FLUSH ASDIRECTED PRN PRN Reason: Keep Vein Open Sodium Chloride (Saline Flush) 2.5 ml FLUSH ASDIRECTED PRN PRN Reason: Keep Vein Open Sodium Chloride (Normal Saline) 10 ml IV ASDIRECTED PRN PRN Reason: IV Use Sterile Water (Sterile Water For Irrigation) 1,000 ml IRR ASDIRECTED PRN PRN Reason: delivery Terbutaline Sulfate (Brethine) 0.25 mg SUBCUT ASDIRECTED PRN PRN Reason: Tacysystole Witch Kristy (Tucks) Confirm Administered Dose 1 pad TOP .STK-MED ONE Stop: 08/14/19 09:06 Last Admin: 08/14/19 09:33 Dose: 1 applic - Interaction Support Person: - Recovery Exam Fundal Tone: Firm Fundal Level: 1 Fingerbreadths Below Umbilicus Lochia Amount: Scant Lochia Color: Rubra/Red Episiotomy/Laceration: Approximated Bladder Status: Voiding - Exam General: Alert, Oriented Lungs: Normal Respiratory Effort Cardiovascular: Regular Rate, Regular Rhythm GI/Abdominal Exam: Normal Bowel Sounds, Soft Extremities: Pedal Edema (trace). No: Reese's Sign Skin: Warm, Dry, Intact Neurological: No New Focal Deficit Psy/Mental Status: Alert, Normal Affect, Normal Mood - Problem List & Annotations (1) Vaginal delivery SNOMED Code(s): 813391321 Code(s): O80 - ENCOUNTER FOR FULL-TERM UNCOMPLICATED DELIVERY Status: Acute Current Visit: No - Problem List Review Problem List Initiated/Reviewed/Updated: Yes - My Orders Last 24 Hours: My Active Orders 08/15/19 09:12 Ready for Discharge [RC] PER UNIT ROUTINE - Assessment Assessment:: PPD 1 status post - Plan Plan:: Doing well overall. Would like to go home today. Discharge instructions reviewed. Follow up at [facility] 6 weeks. Discharge to home today.
[2019-08-15 09:32] VITALS: BP 110/56; PULSE 90
== END 2019-08-15 10:53 | disposition home or self-care (01) | DRG 560 ==
LOC: MW.OB 17:05 → OBSVTOIN 08-14 08:37 → MW.OB 08-14 11:00
PROVIDERS: ADMIT Obstetrics & Gynecology; ATTEND Obstetrics & Gynecology
PROC: 10E0XZZ Delivery of Products of Conception, External Approach (ICD-10-PCS; principal; 2019-08-14)
PROC: 3E033VJ Introduction of Other Hormone into Peripheral Vein, Percutaneous Approach (ICD-10-PCS; 2019-08-14)
PROC: 0KQM0ZZ Repair Perineum Muscle, Open Approach (ICD-10-PCS; 2019-08-14)
PROC: 3E0P7VZ Introduction of Hormone into Female Reproductive, Via Natural or Artificial Opening (ICD-10-PCS; 2019-08-14)
DX: O40.3XX0 Polyhydramnios, third trimester, not applicable or unspecified (principal); O70.1 Second degree perineal laceration during delivery; Z88.0 Allergy status to penicillin; Z88.1 Allergy status to other antibiotic agents; Z37.0 Single live birth; Z3A.39 39 weeks gestation of pregnancy; Z79.899 Other long term (current) drug therapy
CPT/HCPCS: 36415; 59025; 59409; 82803; 85014; 85018; 85027; 86592; 86593; 86850; 86900; 86901; A9270-GY; J0595; J2300; J7120

== ENCOUNTER 2022-07-01 08:33 | Observation (INO) | payer BC ==
[2022-07-01] MEDS ORDERED: Misoprostol 200 MCG Tab PO PRN (08:59)
[2022-07-01] MEDS ORDERED: Tranexamic Acid 1,000 MG in Sodium Chloride 0.9% 100 ML IV PRN (08:59)
[2022-07-01] MEDS ORDERED: Carboprost Tromethamine 250 MCG/1 ML Amp IM PRN (08:59)
[2022-07-01] MEDS ORDERED: Butorphanol 1 MG/ML SDV IVPUSH PRN (08:59)
[2022-07-01] MEDS ORDERED: Sodium Chloride 0.9% 10 ML Syringe FLUSH PRN (08:59)
[2022-07-01] MEDS ORDERED: Terbutaline 1 MG/ML SDV SUBCUT PRN (08:59)
[2022-07-01] MEDS ORDERED: Water For Irrigation,Sterile 1,000 ML Container IRR PRN (08:59)
[2022-07-01] MEDS ORDERED: Methylergonovine 0.2 MG/1 ML Amp IM PRN (08:59)
[2022-07-01] MEDS ORDERED: Lidocaine 1% 50 ML MDV INJECT PRN (08:59)
[2022-07-01] MEDS ORDERED: Sodium Chloride 0.9% 2.5 ML Syringe FLUSH PRN (08:59)
[2022-07-01] MEDS ORDERED: Sodium Chloride 0.9% 20 ML SDV IV PRN (08:59)
[2022-07-01] MEDS ORDERED: Oxytocin/0.9 % Sodium Chloride 30 UNIT/500 ML BAG IV SCH (09:00)
[2022-07-01] MEDS ORDERED: Lactated Ringers 1,000 ML IV SCH ×2 (09:00→11:30)
[2022-07-01] MEDS ORDERED: Misoprostol 50 MCG (1/2 of 100 MCG) Tab VAG ONE (09:30)
[2022-07-01] MEDS ORDERED: Misoprostol 200 MCG Tab VAG ONE (09:45)
[2022-07-01] MEDS ORDERED: Phenylephrine HCl In 0.9% NaCl 1 MG/10 ML Vial IVPUSH PRN (10:14)
[2022-07-01] MEDS ORDERED: ePHEDrine 50 MG/ML SDV IVPUSH PRN ×2 (10:14)
[2022-07-01] MEDS ORDERED: Ropivacaine HCl/PF 400 MG in Premix Bag 1 BAG EPIDUR SCH (10:15)
[2022-07-01] MEDS ORDERED: Phenylephrine HCl In 0.9% NaCl 1 MG/10 ML Vial IVPUSH SCH (10:15)
[2022-07-01] MEDS ORDERED: Ketorolac 30 MG/ML SDV IVPUSH PRN (11:11)
[2022-07-01] MEDS ORDERED: Morphine 2 MG/ML SYRINGE IVPUSH PRN (11:11)
[2022-07-01] MEDS ORDERED: Ondansetron 4 MG/2 ML SDV IVPUSH PRN (11:16)
[2022-07-01] MEDS ORDERED: Acetaminophen 1,000 MG in Premix Bag 1 BAG IV PRN (11:16)
[2022-07-01] MEDS ORDERED: Misoprostol 200 MCG Tab VAG PRN (13:30)
[2022-07-01] MEDS ORDERED: Acetaminophen 500 MG Tab PO ONE (22:00)
== END 2022-07-01 23:25 | disposition home or self-care (01) ==
LOC: MW.OBCHECK 08:33 → MW.OB 08:35 → MW.OBCHECK 09:00 → MW.OB 09:01
PROVIDERS: ADMIT Obstetrics & Gynecology; ATTEND Obstetrics & Gynecology
DX: O02.1 Missed abortion (principal); O36.80X0 Pregnancy with inconclusive fetal viability, not applicable or unspecified; Z79.899 Other long term (current) drug therapy; G43.909 Migraine, unspecified, not intractable, without status migrainosus; Z98.890 Other specified postprocedural states; Z88.0 Allergy status to penicillin; Z88.1 Allergy status to other antibiotic agents; Z20.822 Contact with and (suspected) exposure to COVID-19; Z3A.15 15 weeks gestation of pregnancy
CPT/HCPCS: 36415; 85025; 86146; 86147; 86592; 86747; 86850; 86900; 86901; 87635; 96365; 96366; A9270; G0378; J2590; J7120; U0002

== ENCOUNTER 2022-07-08 08:30 | Day surgery (SDC) | payer BC ==
[~2022-07-08 08:30] MED LIST changes: -Iopamidol 612 MG/ML 30 ML SDV IUTERINE STA; +Lactated Ringers 1,000 ML IV SCH
[2022-07-08] MEDS ORDERED: Famotidine 20 MG/2 ML SDV ONE (08:42)
[2022-07-08] MEDS ORDERED: Metoclopramide 10 MG/2 ML SDV IVPUSH PRN (09:01)
[2022-07-08] MEDS ORDERED: Morphine 2 MG/ML SYRINGE IVPUSH PRN (09:01)
[2022-07-08] MEDS ORDERED: HYDROmorphone 1 MG/ML Syringe IVPUSH PRN (09:01)
[2022-07-08] MEDS ORDERED: Ondansetron 4 MG/2 ML SDV IVPUSH PRN (09:01)
[2022-07-08] MEDS ORDERED: Naloxone 0.4 MG/ML SDV IVPUSH PRN (09:01)
[2022-07-08] MEDS ORDERED: Albuterol 0.083% 2.5 MG/3 ML Neb Soln NEB PRN (09:01)
[2022-07-08] MEDS ORDERED: fentaNYL 50 MCG/ML SDV IVPUSH PRN (09:01)
[2022-07-08] MEDS ORDERED: fentaNYL 250 MCG/5 ML SDV ONE (09:29)
[2022-07-08] MEDS ORDERED: Propofol 200 MG/20 ML SDV ONE (09:29)
[2022-07-08] MEDS ORDERED: Lidocaine 2% 11 ML Jelly Filled Syringe ONE (09:34)
[2022-07-08] MEDS ORDERED: Sugammadex Sodium 200 MG/2 ML VIAL ONE (09:35)
[2022-07-08] MEDS ORDERED: Dexamethasone 4 MG/ML 5 ML MDV ONE (09:35)
[2022-07-08] MEDS ORDERED: Ondansetron 4 MG/2 ML SDV ONE (09:35)
[2022-07-08] MEDS ORDERED: Rocuronium Bromide 50 MG/5 ML Syringe ONE (09:35)
[2022-07-08 09:47] LABS: CARBON DIOXIDE,CO2 21.8 mmol/L (21.0-32.0); POTASSIUM,K 3.7 mmol/L (3.5-5.1)
[2022-07-08] MEDS ORDERED: Ketorolac 30 MG/ML SDV ONE (10:28)
[2022-07-08 12:17] VITALS: BP 115/85; PULSE 84
== END 2022-07-08 11:45 | disposition home or self-care (01) ==
LOC: MW.SDS 08:30
PROVIDERS: ATTEND Obstetrics & Gynecology
DX: O03.4 Incomplete spontaneous abortion without complication (principal); G43.909 Migraine, unspecified, not intractable, without status migrainosus; F32.A Depression, unspecified; Z88.0 Allergy status to penicillin; Z88.8 Allergy status to other drugs, medicaments and biological substances; Z98.890 Other specified postprocedural states; Z79.899 Other long term (current) drug therapy
CPT/HCPCS: 36415; 59812; 80053; 85025; A9270; J0131; J1100; J1885; J2405; J2704; J3010; J3490; J7120; 01965

== ENCOUNTER 2022-09-08 08:34 | Day surgery (SDC) | payer BC ==
[~2022-09-08 08:34] MED LIST changes: +Albuterol 0.083% 2.5 MG/3 ML Neb Soln NEB PRN; +HYDROmorphone 1 MG/ML Syringe IVPUSH PRN; +Metoclopramide 10 MG/2 ML SDV IVPUSH PRN; +Morphine 2 MG/ML SYRINGE IVPUSH PRN; +Naloxone 0.4 MG/ML SDV IVPUSH PRN; +Ondansetron 4 MG/2 ML SDV IVPUSH PRN; +fentaNYL 50 MCG/ML SDV IVPUSH PRN
[2022-09-08] MEDS ORDERED: Propofol 200 MG/20 ML SDV ONE (08:52)
[2022-09-08] MEDS ORDERED: Ondansetron 4 MG/2 ML SDV ONE (08:52)
[2022-09-08] MEDS ORDERED: Lidocaine 2% 5 ML SDV ONE (08:52)
[2022-09-08] MEDS ORDERED: Ketorolac 30 MG/ML SDV ONE (08:52)
[2022-09-08] MEDS ORDERED: fentaNYL 100 MCG/2 ML SDV ONE (08:52)
[2022-09-08] MEDS ORDERED: Dexamethasone 4 MG/ML 5 ML MDV ONE (08:52)
[2022-09-08] MEDS ORDERED: ePHEDrine 50 MG/ML SDV ONE (10:02)
[2022-09-08 13:29] VITALS: BP 107/72; PULSE 76
== END 2022-09-08 11:19 | disposition home or self-care (01) ==
LOC: MW.SDS 08:34
PROVIDERS: ATTEND Obstetrics & Gynecology
DX: N71.1 Chronic inflammatory disease of uterus (principal); N71.0 Acute inflammatory disease of uterus; N71.9 Inflammatory disease of uterus, unspecified; N80.03 Adenomyosis of the uterus; R94.6 Abnormal results of thyroid function studies; G43.909 Migraine, unspecified, not intractable, without status migrainosus; E03.9 Hypothyroidism, unspecified; F32.A Depression, unspecified; Z79.890 Hormone replacement therapy; Z79.899 Other long term (current) drug therapy; Z88.0 Allergy status to penicillin; Z88.1 Allergy status to other antibiotic agents
CPT/HCPCS: 58563; J0131; J1100; J1885; J2405; J2704; J3010; J7120; 01965; J3490

== ENCOUNTER 2024-05-23 00:16 | Inpatient (IN) | payer BC ==
[2024-05-23] MEDS ORDERED: Carboprost Tromethamine 250 MCG/1 mL Vial IM PRN (00:50)
[2024-05-23] MEDS ORDERED: Butorphanol 2 MG/ML SDV IVPUSH PRN (00:50)
[2024-05-23] MEDS ORDERED: Sodium Chloride 0.9% 20 ML SDV IV PRN (00:50)
[2024-05-23] MEDS ORDERED: Methylergonovine 0.2 MG/1 ML Amp IM PRN ×2 (00:50→16:44)
[2024-05-23] MEDS ORDERED: Sodium Chloride 0.9% 2.5 ML Syringe FLUSH PRN (00:50)
[2024-05-23] MEDS ORDERED: Water For Irrigation,Sterile 1,000 ML Container IRR PRN (00:50)
[2024-05-23] MEDS ORDERED: Terbutaline 1 MG/ML SDV SUBCUT PRN (00:50)
[2024-05-23] MEDS ORDERED: Misoprostol 200 MCG Tab PO PRN (00:50)
[2024-05-23] MEDS ORDERED: Ondansetron 4 MG/2 ML SDV IVPUSH PRN (00:50)
[2024-05-23] MEDS ORDERED: Sodium Chloride 0.9% 10 ML Syringe FLUSH PRN (00:50)
[2024-05-23] MEDS ORDERED: Lidocaine 1% 50 ML MDV INJECT PRN (00:50)
[2024-05-23] MEDS ORDERED: Oxytocin/0.9 % Sodium Chloride 30 UNIT/500 ML BAG IV SCH (01:00)
[2024-05-23] MEDS: Misoprostol 25 MCG (1/4 of 100 MCG) Tab VAG PRN ×2 (01:31→05:33)
[2024-05-23 01:49] LABS: HEMATOCRIT 37.4 % (37.0-47.0); HEMOGLOBIN 13.2 g/dL (12.0-16.0); MEAN CORPUSCULAR HEMOGLOBIN 31.2 pg (28.0-32.0); MEAN CORPUSCULAR HGB CONC 35.3 g/dL (32.0-36.0); MEAN CORPUSCULAR VOLUME 88.4 fL (83.0-99.0); MEAN PLATELET VOLUME 10.7 fL (9.4-12.3); PLATELET COUNT,PLT 140 K/uL (150-400); RED BLOOD CELL COUNT 4.23 M/uL (4.10-5.30); WHITE BLOOD CELL COUNT,WBC 9.88 K/uL (3.9-11.3)
[2024-05-23] MEDS: Sodium Chloride 0.9% 1,000 ML IV SCH (08:15)
[2024-05-23] MEDS ORDERED: Ropivacaine HCl/PF 200 ML ONE (08:44)
[2024-05-23] MEDS ORDERED: dexmedeTOMIDine HCl 200 MCG/2 ML SDV ONE (08:44)
[2024-05-23] MEDS: Ropivacaine HCl/PF 400 MG in Premix Bag 1 BAG EPIDUR SCH (08:45)
[2024-05-23] MEDS ORDERED: ePHEDrine 50 MG/ML SDV IVPUSH PRN (09:02)
[2024-05-23] MEDS ORDERED: Phenylephrine HCl In 0.9% NaCl 1 MG/10 ML Syringe IVPUSH PRN (09:02)
[2024-05-23] MEDS ORDERED: dexmedeTOMIDine HCl 200 MCG/2 ML SDV EPIDUR SCH (09:15)
[2024-05-23] MEDS: Oxytocin/0.9 % Sodium Chloride 30 UNIT/500 ML BAG IV SCH (14:34)
[2024-05-23] MEDS ORDERED: Docusate Sodium 100 MG Cap PO PRN (16:44)
[2024-05-23] MEDS ORDERED: Misoprostol 200 MCG Tab RECTAL PRN (16:44)
[2024-05-23] MEDS: Witch Hazel Medicated Pads 40/Jar TOP PRN (17:32)
[2024-05-23] MEDS: Lanolin 100% Cream 7 GM Tube TOP PRN (17:33)
[2024-05-23] MEDS: Benzocaine/Menthol 20%-0.5% Spray 78 GM Cannister TOP PRN (17:37)
[2024-05-23] MEDS: Ibuprofen 800 MG Tab PO PRN (17:38)
[2024-05-23 18:22] LABS: PH,UMBILICAL ARTERIAL 7.192 (7.18-7.38); PH,UMBILICAL VENOUS 7.297 (7.25-7.45)
[2024-05-23] MEDS: Escitalopram 10 MG Tab PO SCH (20:19)
[2024-05-23] MEDS: Acetaminophen 500 MG Tab PO PRN (22:26)
[2024-05-24 06:22] LABS: HEMATOCRIT 39.1 % (37.0-47.0); HEMOGLOBIN 13.4 g/dL (12.0-16.0)
[2024-05-24] MEDS: Levothyroxine 25 MCG Tab PO SCH (09:20)
[2024-05-24] MEDS ORDERED: Measles, Mumps & Rubella Vaccine 0.5 ML SDV SUBCUT ONE (13:43)
[2024-05-24 21:18] VITALS: BP 118/66; PULSE 79
== END 2024-05-24 22:45 | disposition home or self-care (01) | DRG 560 ==
LOC: MW.OB 00:16 → OBSVTOIN 16:23 → MW.OB 22:30
PROVIDERS: ADMIT Obstetrics & Gynecology; ATTEND Obstetrics & Gynecology
PROC: 10E0XZZ Delivery of Products of Conception, External Approach (ICD-10-PCS; principal; 2024-05-23)
PROC: 0KQM0ZZ Repair Perineum Muscle, Open Approach (ICD-10-PCS; 2024-05-23)
DX: O99.344 Other mental disorders complicating childbirth (principal); F41.1 Generalized anxiety disorder; Z37.0 Single live birth; Z3A.39 39 weeks gestation of pregnancy; O70.1 Second degree perineal laceration during delivery
CPT/HCPCS: 01967; 36415; 51702; 59025; 59409; 82803; 85014; 85018; 85027; 86592; 86850; 86900; 86901; A9270-GY; J2590; J2795; J3490; J7030